=== PATIENT | female | born 1965 | race Caucasian/White ===

== ENCOUNTER 2019-05-13 15:42 | Emergency (ER) | payer MEDICAID, OTHER ==
[~2019-05-13] VITALS: Ht 154.9 cm; Wt 56.1 kg
[~2019-05-13 15:42] MED LIST: ALPR0.5T PO; AMLO5TAB4 PO; ASPI-831 PO; BEN25 PO; IBUP-1542 PO; OMEG-135 PO; ONDA4TAB14 PO
[2019-05-13 15:57] VITALS: Ht 154.9 cm; Wt 56.1 kg
[2019-05-13] MEDS ORDERED: METOCLOPRAMIDE 10 MG INJ IV STA (17:32)
[2019-05-13] MEDS ORDERED: DIPHENHYDRAMINE 50 MG INJ IV STA (17:32)
[2019-05-13] MEDS ORDERED: KETOROLAC 30 MG INJ IV STA (17:32)
[2019-05-13 19:03] VITALS: BP 153/69; PULSE 70; RESP 18
== END 2019-05-13 19:06 | disposition home or self-care (01) ==
LOC: FTE 15:42
DX: R51 Headache (principal); I10 Essential (primary) hypertension; Z79.82 Long term (current) use of aspirin
CPT/HCPCS: 81025; 93005; 96374; 96375; J1200; J1885; J2765; Z7502